=== PATIENT | male | born 1960 | race Caucasian/White ===

== ENCOUNTER 2019-10-05 18:06 | Emergency (ER) | payer MEDICARE, MEDICAID ==
[~2019-10-05] VITALS: Ht 182.9 cm; Wt 81.8 kg
[2019-10-05 18:11] VITALS: BP 191/112
--- NOTE | 2019-10-05 18:40 | NUR ---
PT ALL DRESSED WHEN RN WENT TO ASSESS AND IS REFUSING CARE. RN INFORMED ERMD. ERMD AWARE AND IS DISCHARGING PATIENT.
== END 2019-10-05 18:43 ==
LOC: ED 18:35
DX: F10.129 Alcohol abuse with intoxication, unspecified (principal); F15.129 Other stimulant abuse with intoxication, unspecified; R00.0 Tachycardia, unspecified; F41.9 Anxiety disorder, unspecified; Y90.9 Presence of alcohol in blood, level not specified
CPT/HCPCS: 99283

== ENCOUNTER 2019-10-24 22:27 | Emergency (ER) | payer MEDICARE, MEDICAID ==
[~2019-10-24] VITALS: Ht 172.7 cm; Wt 65.0 kg
[2019-10-24 22:29] VITALS: BP 138/95
[2019-10-24] MEDS ORDERED: TENO150T PO (22:32)
--- NOTE | 2019-10-24 22:41 | NUR ---
pt states he follows with [facility] and has an appointment tomorrow morning
[2019-10-24] MEDS ORDERED: LORazepam 1MG TABLET ONE (23:14)
--- NOTE | 2019-10-24 23:22 | NUR ---
given ativan per esteban amezquita order pt was able to swallow given dc instruction pt understood pt up ambulated to check out [facility] heading [facility]
[2019-10-24] MEDS ORDERED: LORazepam 1MG TABLET PO ONE (23:30)
== END 2019-10-24 23:25 | disposition home or self-care (01) ==
LOC: ED 22:30
DX: F15.10 Other stimulant abuse, uncomplicated (principal); F41.1 Generalized anxiety disorder; Z72.9 Problem related to lifestyle, unspecified
CPT/HCPCS: 99283

== ENCOUNTER 2019-10-26 23:01 | Emergency (ER) | payer MEDICARE, MEDICAID ==
[~2019-10-26] VITALS: Ht 182.9 cm; Wt 90.0 kg
[~2019-10-26 23:01] MED LIST: TENO150T PO
[2019-10-26 23:06] VITALS: BP 167/97
--- NOTE | 2019-10-26 23:11 | NUR ---
Pt presents to ed c/o generalized si and "i just need to get off the street man.... i dont feel safe." Denies evident plan for si. Pt admits to being to multiple different facilities and hospitals in last couple of days and recently moved to [place]. All belongings taken and placed in bags. Roller doors in place. Awaiting md assessment.
--- NOTE | 2019-10-26 23:26 | NUR ---
at bedside for assessmet.
[2019-10-26] MEDS ORDERED: ZIPRASIDONE 20 MG INJ IM ONE (23:54)
[2019-10-27] MEDS ORDERED: ZIPRASIDONE 20 MG INJ IM ONE
--- NOTE | 2019-10-27 00:24 | NUR ---
Pt tbdc per md.
== END 2019-10-27 00:40 | disposition home or self-care (01) ==
LOC: ED 10-27 00:15
DX: F15.129 Other stimulant abuse with intoxication, unspecified (principal); F41.9 Anxiety disorder, unspecified; Z72.9 Problem related to lifestyle, unspecified
CPT/HCPCS: 96372; 99283; J3486

== ENCOUNTER 2019-12-06 17:59 | Emergency (ER) | payer MEDICARE, MEDICAID ==
[~2019-12-06] VITALS: Ht 182.9 cm; Wt 84.0 kg
[2019-12-06 18:10] VITALS: BP 131/79
--- NOTE | 2019-12-06 19:14 | NUR ---
PT STATES HIS FEET AND HANDS BURNING, LEGS HURT TO MOVE. PT STATES NECK HURTS, GLANDS FEEL SWOLLEN AND THROAT HURTS. PT STATES HE KNOWS WE ARE GOING TO DO TESTS AND TELL HIM HE IS FINE AND THEN HE WILL BE TOLD TO GO [facility] AND BE KICKED OUT OF HOSPITAL. PT SPEAKING FAST AND RAPID, NO SOB NOTED. PT STATES HE HAS HAD A COUGH SINCE YESTERDAY. PT STATES HE THINKS HE WILL GO TO SLEEP AND . REASSURED PT THAT HIS BREATHING IS NOT LABORED, THAT HE IS ABLE TO SPEAK FULL SENTENCES AND THAT HE IS GOING TO BE OK. AFTER LEAVING THE ROOM PT GOT HIS CLOTHES ON AND GRABBED HIS BELONGINGS AN LEFT ER, STEADY GAIT. PROVIDER AWARE.
== END 2019-12-06 19:19 | disposition home or self-care (01) ==
LOC: ED 18:31
DX: J02.9 Acute pharyngitis, unspecified (principal); F15.10 Other stimulant abuse, uncomplicated; R05 Cough; R00.0 Tachycardia, unspecified; F17.200 Nicotine dependence, unspecified, uncomplicated
CPT/HCPCS: 71045; 99283

== ENCOUNTER 2019-12-24 13:47 | Emergency (ER) | payer MEDICARE, MEDICAID ==
[~2019-12-24] VITALS: Ht 182.9 cm; Wt 83.1 kg
[2019-12-24 13:51] VITALS: BP 150/104
== END 2019-12-24 15:02 | disposition left against medical advice (07) ==
LOC: ED 14:58
DX: H53.8 Other visual disturbances (principal); Z53.21 Procedure and treatment not carried out due to patient leaving prior to being seen by health care provider
CPT/HCPCS: 93005

== ENCOUNTER 2020-04-13 03:50 | Emergency (ER) | payer MEDICARE, MEDICAID ==
[~2020-04-13] VITALS: Ht 177.8 cm; Wt 87.0 kg
[2020-04-13 03:55] VITALS: BP 102/69
--- NOTE | 2020-04-13 04:33 | NUR ---
Pt requesting to leave at this time, pt states "everything's fine, i don't want to stay, i don't actually need anything right now so i'm gonna leave." Pt walked off unit without being seen by doctor
== END 2020-04-13 04:36 | disposition left against medical advice (07) ==
LOC: ED 04:15
DX: R05 Cough (principal); R53.1 Weakness; Z53.21 Procedure and treatment not carried out due to patient leaving prior to being seen by health care provider

== ENCOUNTER 2020-04-17 23:23 | Emergency (ER) | payer MEDICARE, MEDICAID ==
[~2020-04-17] VITALS: Ht 182.9 cm; Wt 87.5 kg
[2020-04-17 23:26] VITALS: BP 131/90
--- NOTE | 2020-04-17 23:28 | NUR ---
PATIENT AMBULATED STEADY TO ROOM.
--- NOTE | 2020-04-17 23:54 | NUR ---
PATIENT STATES HITTING HIS HEAD YESTERDAY ON A STAIR CASE AND STATES SEEING STARS AND NOT REMEMBERING MUCH AFTER THAT. PATIENT STATES HE WAS DRINKING ALCOHOL AND DOING METH ALL DAY WHEN THAT HAPPENED WELL. SEEN BY ERP. NO S/S OF DESTRESS AT THIS TIME.
== END 2020-04-18 01:01 | disposition home or self-care (01) ==
LOC: ED 04-18 00:06
DX: S00.01XA Abrasion of scalp, initial encounter (principal); S09.90XA Unspecified injury of head, initial encounter; F15.10 Other stimulant abuse, uncomplicated; R55 Syncope and collapse; Z72.9 Problem related to lifestyle, unspecified; R00.0 Tachycardia, unspecified; Z21 Asymptomatic human immunodeficiency virus [HIV] infection status; X58.XXXA Exposure to other specified factors, initial encounter; Y93.89 Activity, other specified; Y92.410 Unspecified street and highway as the place of occurrence of the external cause; Y99.8 Other external cause status
CPT/HCPCS: 70450; 99284

== ENCOUNTER 2020-05-21 14:47 | Emergency (ER) | payer MEDICARE, MEDICAID ==
--- NOTE | 2020-05-21 15:19 | NUR ---
CALLED PT, WAS TOLD BY REG THAT HE WALKED OUT
== END 2020-05-21 15:21 | disposition left against medical advice (07) ==
LOC: ED 14:48
DX: F29 Unspecified psychosis not due to a substance or known physiological condition (principal); Z53.21 Procedure and treatment not carried out due to patient leaving prior to being seen by health care provider

== ENCOUNTER 2020-05-21 17:20 | Emergency (ER) | payer MEDICARE, MEDICAID ==
[~2020-05-21] VITALS: Ht 182.9 cm; Wt 75.0 kg
[2020-05-21 17:24] VITALS: BP 160/118
--- NOTE | 2020-05-21 17:31 | NUR ---
PT LEFT WITHOUT BEEING SEEN, WENT TO THE TRIAGE ROOM TO PUT PT IN ROOM 24 AND HE RAN OUT OG THE ED PER REG
== END 2020-05-21 17:33 | disposition left against medical advice (07) ==
LOC: ED 17:21
DX: F15.10 Other stimulant abuse, uncomplicated (principal); Z53.21 Procedure and treatment not carried out due to patient leaving prior to being seen by health care provider

== ENCOUNTER 2020-09-09 10:03 | Emergency (ER) | payer MEDICARE, MEDICAID ==
[~2020-09-09] VITALS: Ht 182.9 cm; Wt 90.9 kg
[2020-09-09 10:06] VITALS: BP 146/102
--- NOTE | 2020-09-09 10:28 | NUR ---
went to see patidilshad and he was gone.
== END 2020-09-09 11:02 | disposition left against medical advice (07) ==
LOC: ED 10:55
DX: B34.9 Viral infection, unspecified (principal)
CPT/HCPCS: 99281

== ENCOUNTER 2020-10-23 08:22 | Emergency (ER) | payer MEDICARE, MEDICAID ==
[~2020-10-23] VITALS: Ht 182.9 cm; Wt 90.3 kg
[2020-10-23 08:25] VITALS: BP 151/116
--- NOTE | 2020-10-23 09:16 | NUR ---
Irrigated left ear, pt tolerated well
== END 2020-10-23 09:30 | disposition left against medical advice (07) ==
LOC: ED 09:15
DX: T16.2XXA Foreign body in left ear, initial encounter (principal); S00.412A Abrasion of left ear, initial encounter; Z21 Asymptomatic human immunodeficiency virus [HIV] infection status; X58.XXXA Exposure to other specified factors, initial encounter; Y93.89 Activity, other specified; Y92.89 Other specified places as the place of occurrence of the external cause; Y99.8 Other external cause status
CPT/HCPCS: 99282

== ENCOUNTER 2021-01-27 22:50 | Emergency (ER) | payer MEDICARE, MEDICAID ==
[~2021-01-27] VITALS: Ht 182.9 cm; Wt 89.9 kg
[2021-01-27 22:53] VITALS: BP 138/102
[2021-01-27] MEDS ORDERED: DIPH,PERTUSS(ACELL),TET VAC/PF 0.5 ML IM-VACC ONE (23:00)
--- NOTE | 2021-01-28 02:04 | NUR ---
NA X1
--- NOTE | 2021-01-28 02:35 | NUR ---
NAX3
== END 2021-01-28 02:37 | disposition left against medical advice (07) ==
LOC: ED 23:00
DX: S61.233A Puncture wound without foreign body of left middle finger without damage to nail, initial encounter (principal); X58.XXXA Exposure to other specified factors, initial encounter; Y93.89 Activity, other specified; Y92.89 Other specified places as the place of occurrence of the external cause; Y99.8 Other external cause status
CPT/HCPCS: 99281

== ENCOUNTER 2021-02-02 12:43 | Emergency (ER) | payer MEDICARE, MEDICAID ==
[~2021-02-02] VITALS: Ht 182.9 cm; Wt 90.3 kg
--- NOTE | 2021-02-02 13:56 | NUR ---
MESSAGING ARCHITECT: PT TO ROOM FROM LOBBY
[2021-02-02] MEDS ORDERED: INDOMETHACIN 50 MG CAPSULE PO ONE ×2 (14:45→15:00)
[2021-02-02 14:48] VITALS: BP 142/99
[2021-02-02] MEDS ORDERED: COLCHICINE 0.6 MG CAPSULE PO ONE (15:00)
== END 2021-02-02 15:14 | disposition home or self-care (01) ==
LOC: ED 15:01
DX: M79.672 Pain in left foot (principal); F15.10 Other stimulant abuse, uncomplicated; Z21 Asymptomatic human immunodeficiency virus [HIV] infection status
CPT/HCPCS: 99283

== ENCOUNTER 2021-02-03 10:50 | Emergency (ER) | payer MEDICARE, MEDICAID ==
[~2021-02-03] VITALS: Ht 182.9 cm; Wt 92.4 kg
--- NOTE | 2021-02-03 11:09 | NUR ---
PT. WAS SEEN FOR GOUT IN HIS LEFT FOOT YESTERDAY. PT. REPORTS THAT HE MISPLACED HIS PRESCRIPTION. PT TO ROOM WITH STEADY GAIT. ATTACHED TO MONITORS. VSS. HAAS.
[2021-02-03 11:14] VITALS: BP 121/88
[2021-02-03] MEDS ORDERED: KETOROLAC 30 MG/1 ML ONE (11:21)
--- NOTE | 2021-02-03 11:25 | NUR ---
PT MEDICATED PER EMAR. VSS. ASHISHN.
[2021-02-03] MEDS ORDERED: KETOROLAC 30 MG/1 ML IM ONE (11:30)
[2021-02-03] MEDS ORDERED: COLCHICINE 0.6 MG CAPSULE PO ONE (11:30)
[2021-02-03] MEDS ORDERED: COLCHICINE 0.6 MG CAPSULE ONE (11:32)
--- NOTE | 2021-02-03 11:43 | NUR ---
Patient given discharge instructions and they have confirmed that they understand the instructions. Patient ambulatory with steady gait. NAD, all questions answered appropriately, denies additional needs at this time. No personal belongings left in room after discharge.
== END 2021-02-03 11:44 | disposition home or self-care (01) ==
LOC: ED 11:04
DX: M10.072 Idiopathic gout, left ankle and foot (principal); Z76.0 Encounter for issue of repeat prescription
CPT/HCPCS: 96372; 99283; J1885

== ENCOUNTER 2021-05-07 07:48 | Emergency (ER) | payer MEDICARE, MEDICAID ==
[~2021-05-07] VITALS: Ht 185.4 cm; Wt 92.4 kg
[2021-05-07 07:51] VITALS: BP 134/101
--- NOTE | 2021-05-07 08:54 | NUR ---
1ST CALL NOT IN ROOM
--- NOTE | 2021-05-07 09:08 | NUR ---
2ND CALL NOT IN LOBBY
--- NOTE | 2021-05-07 09:18 | NUR ---
3RD CALL NOT IN LOBBY
== END 2021-05-07 20:00 | disposition home or self-care (01) ==
LOC: ED 08:06
DX: J02.9 Acute pharyngitis, unspecified (principal); R53.1 Weakness; Z53.21 Procedure and treatment not carried out due to patient leaving prior to being seen by health care provider